=== PATIENT | female | born 1940 | race Caucasian/White ===

== ENCOUNTER → 2021-01-31 | Day surgery (SDC) | payer MEDICARE ==
[~2021-01-31] VITALS: Ht 160 cm; Wt 61.2 kg
[~2021-01-31] MED LIST: ASPIRIN EC81 MG PO; CARVEDILOL6.25 MG PO; COREG 6.25MG6.25 MG PO; CRESTOR10 M1 PO; ISOSORBIDE MONO30 MG PO; PRILOSEC20 MG PO; PRINIVIL20 MG PO; PROTONIX 40MG T40 MG PO; VISION FORMULA1 EAC1 PO; VITAMIN D350 MC3 PO; ZYRTEC10 M3 PO
== END | disposition home or self-care (01) ==
LOC: FAS 10:46
DX: K31.89 Other diseases of stomach and duodenum (principal); K31.7 Polyp of stomach and duodenum; K29.80 Duodenitis without bleeding; K64.4 Residual hemorrhoidal skin tags; R68.81 Early satiety; I10 Essential (primary) hypertension; K21.9 Gastro-esophageal reflux disease without esophagitis; Z20.822 Contact with and (suspected) exposure to COVID-19; M19.90 Unspecified osteoarthritis, unspecified site; I65.23 Occlusion and stenosis of bilateral carotid arteries; I25.119 Atherosclerotic heart disease of native coronary artery with unspecified angina pectoris; E78.00 Pure hypercholesterolemia, unspecified; E78.5 Hyperlipidemia, unspecified; K82.4 Cholesterolosis of gallbladder; I70.0 Atherosclerosis of aorta; M81.0 Age-related osteoporosis without current pathological fracture; R63.4 Abnormal weight loss; Z68.22 Body mass index [BMI] 22.0-22.9, adult; Z85.068 Personal history of other malignant neoplasm of small intestine; Z86.73 Personal history of transient ischemic attack (TIA), and cerebral infarction without residual deficits; Z87.891 Personal history of nicotine dependence; Z79.82 Long term (current) use of aspirin; Z79.899 Other long term (current) drug therapy; Z88.0 Allergy status to penicillin; Z88.1 Allergy status to other antibiotic agents; Z88.2 Allergy status to sulfonamides; Z90.49 Acquired absence of other specified parts of digestive tract
CPT/HCPCS: 88305; J2250; J2704; J7120; U0002